=== PATIENT | male | born 1950 | race Caucasian/White ===

== ENCOUNTER 2022-05-06 22:15 | Emergency (ER) | payer OTHER ==
[~2022-05-06] VITALS: Ht 162.6 cm; Wt 63.5 kg
[2022-05-06 22:34] VITALS: BP_SYST 190
--- NOTE | 2022-05-06 22:40 | NUR ---
Patient to ER bed anton to gown for evaluation. Side rails up.
--- NOTE | 2022-05-06 22:44 | NUR ---
ER at bedside examining patient.
[2022-05-06] MEDS ORDERED: cloNIDine HCL 0.1 MG TABLET PO ONE (22:45)
[2022-05-06] MEDS ORDERED: NAPR-690 PO (23:31)
--- NOTE | 2022-05-06 23:36 | NUR ---
Patient given written and verbal discharge instructions by Dr Rajput and verbalizes understanding. ER MD discussed with patient the results and treatment provided. Patient in stable condition. ID arm band removed. IV catheter removed intact and dressing applied, no active bleeding. no Rx of given. Patient educated on pain management and to follow up with PMD. Pain Scale 4/10. Opportunity for questions provided and answered. Medication side effect fact sheet provided.
[2022-05-06 23:41] VITALS: BP_SYST 150
== END 2022-05-06 23:41 | disposition home or self-care (01) ==
LOC: SED 22:15
DX: S00.03XA Contusion of scalp, initial encounter (principal); I10 Essential (primary) hypertension; Z79.899 Other long term (current) drug therapy; V89.2XXA Person injured in unspecified motor-vehicle accident, traffic, initial encounter; Y93.89 Activity, other specified; Y92.89 Other specified places as the place of occurrence of the external cause; Y99.8 Other external cause status
CPT/HCPCS: 70450-TC; 72125-TC; 76376; 99284